=== PATIENT | female | born 1960 | race Caucasian/White ===

== ENCOUNTER 2024-12-27 10:51 | Outpatient (CLI) | payer BC, SELFPAY | END 2024-12-27 10:52 | disposition home or self-care (01) | PROVIDERS: PCP Family Medicine; Visit Provider Family Medicine | DX: M79.661 Pain in right lower leg (principal) | CPT/HCPCS: 85379; 86038 ==

== ENCOUNTER 2024-12-27 17:05 | Outpatient (CLI) | payer BC, SELFPAY ==
--- NOTE | 2024-12-27 17:30 | CRLHL7_ITS ---
For Patients: As a result of the Century Cures Act, medical imaging exams and procedure reports are released immediately into your electronic medical record. You may view this report before your referring provider. If you have questions, please contact your health care provider. INDICATION: Right calf pain and swelling. TECHNIQUE: Ultrasound venous duplex lower right extremity. Compression venous exam was performed using pelaez-scale, color Doppler, and spectral Doppler analysis. COMPARISON: None. FINDINGS: Deep veins: Sonographic imaging demonstrates the right common femoral, deep femoral, superficial femoral, popliteal, posterior tibial and the contralateral left common femoral veins to be fully compressible with normal color Doppler blood flow. Superficial veins: Greater saphenous vein is fully compressible. Complex fluid collection centered in the right popliteal fossa 12.8 x 6.1 x 2.4 cm IMPRESSION: 1. No sign of deep venous thrombosis in the right lower extremity. 2. Complex fluid collection centered in the right popliteal fossa measures 12.8 cm, and may reflect a complex Penaloza`s cyst. Dictated by Jarret Carranza MD @ 12/27/2024 7:29:01 PM (Electronically Signed)
== END 2024-12-27 17:06 | disposition home or self-care (01) ==
LOC: US 17:06
PROVIDERS: PCP Family Medicine; Visit Provider Family Medicine
DX: M79.661 Pain in right lower leg (principal)
CPT/HCPCS: 93971

== ENCOUNTER 2025-04-18 13:39 | Outpatient (CLI) | payer BC, SELFPAY ==
[2025-04-18 21:58] LABS: Hematocrit* 43.4 % (33.0-51.0); Hemoglobin* 13.9 gm/dL (12.0-16.0); Immature Granulocytes Abs Auto 0.01 K/uL (0.00-0.30); Immature Granulocytes Pct Auto 0.1 %; Lymphocytes Absolute Auto 2.37 K/uL (0.90-2.90); Mean Corpuscular HGB Conc 32 gm/dL (32-36); Mean Corpuscular Hemoglobin 29 pg (26-34); Mean Corpuscular Volume 89 fL (80-100); RDW Coefficient of Variation % 15.2 % (11.5-15.5); Red Blood Count* 4.86 m/uL (4.00-5.20); White Blood Count* 7.84 K/uL (4.50-11.00)
[2025-04-18 22:04] LABS: Slide Review Reflex No
[2025-04-18 22:21] LABS: Albumin* 4.8 g/dL (3.3-5.0)
[2025-04-18 22:24] LABS: Alanine Aminotransferase* 20 U/L (4-35); Aspartate Amino Transferase* 18 U/L (12-35); Creatinine* 0.7 mg/dL (0.5-1.5); Estimated Glomerular Filt Rate 98 ml/min
== END 2025-04-18 13:40 | disposition home or self-care (01) ==
LOC: NPINS 13:40
PROVIDERS: PCP Family Medicine; Visit Provider Internal Medicine
DX: M05.79 Rheumatoid arthritis with rheumatoid factor of multiple sites without organ or systems involvement (principal); Z79.899 Other long term (current) drug therapy
CPT/HCPCS: 82040; 82565; 84450; 84460; 85025